=== PATIENT | male | born 1995 | race Caucasian/White ===

== ENCOUNTER 2024-11-05 10:41 | Outpatient (CLI) | payer OTHER, SELFPAY ==
--- NOTE | 2024-11-05 11:00 | CRLHL7_ITS ---
For Patients: As a result of the Cures Act, medical imaging exams and procedure reports are released immediately into your electronic medical record. You may view this report before your referring provider. If you have questions, please contact your health care provider. Indication: History of lumbar fusion. Technique: Noncontrast CT of the lumbar spine with multiplanar reconstruction utilizing bone and soft tissue algorithms. Comparison: None available. Findings: No acute fracture or traumatic subluxation. No aggressive osseous lesion. Operative changes of posterior instrumented fusion and left interbody spacer placement at L5-S1. Hardware appears intact without evidence of loosening or failure. T12-L1, L1-L2, L2-L3, and L3-L4: No significant spinal canal or neural foraminal stenosis. L4-L5: Shallow symmetric disc bulge. No significant spinal canal stenosis. Mild-moderate left and mild right neural foraminal narrowing. L5-S1: Streak artifact limits evaluation. No significant spinal canal stenosis. Mild-moderate left and mild right neural foraminal narrowing. Impression: 1. No acute fracture or traumatic subluxation. 2. Operative changes of posterior instrumented fusion and interbody spacer placement at L5-S1. No evidence of hardware loosening or failure. 3. At L4-L5 and L5-S1, mild-moderate left neural foraminal narrowing. Please note that all CT scans at this facility use dose modulation, iterative reconstruction, and/or weight-based dosing when appropriate to reduce radiation dose to as low as reasonably achievable. Dictated by Alfonzo Diamond MD @ 11/06/2024 9:01:59 AM (Electronically Signed)
== END 2024-11-05 10:42 | disposition home or self-care (01) ==
PROVIDERS: Visit Provider Orthopaedic Surgery Orthopaedic Surgery of the Spine
DX: Z98.1 Arthrodesis status (principal); M51.26 Other intervertebral disc displacement, lumbar region; M51.27 Other intervertebral disc displacement, lumbosacral region
CPT/HCPCS: 72131